=== PATIENT | male | born 1955 | race Caucasian/White ===

== ENCOUNTER 2021-10-26 07:58 | Emergency (ER) | payer MEDICARE, OTHER, SELFPAY ==
[2021-10-26] VITALS (8 sets, daily range): BP systolic 124–143; BP diastolic 68–76; PULSE 51–61; RESP 18; TEMP 36.5; O2SAT 97–99; BMI 24.3
--- NOTE | 2021-10-26 08:21 | ED.GENADULT ---
HPI - General Adult General Chief complaint: Abdominal Pain Stated complaint: Right side abd pain Time Seen by Provider: 10/26/21 08:03 Source: patient Mode of arrival: Ambulatory Limitations: no limitations History of Present Illness HPI narrative: 66-year-old male with history of ulcerative colitis is here for evaluation of right-sided abdominal pain. He states that for the past several days/week he has had some abdominal discomfort however this morning he started to have an increase in the discomfort. He states that he has got a constant dull discomfort that has sharp intermittent pain that comes and goes here every couple minutes. No change in bowel habits. No blood in the stool. No urinary symptoms. He had both a bowel movement and urinated this morning which did not make his abdominal pain worse or better. No nausea vomiting. No fevers. No rashes. No chest pain. No shortness of breath. No joint pain. No lower extremity swelling. He states that he has never had abdominal discomfort with his ulcerative colitis issues it has always been blood in his stool. He is not currently on any medications for this. He did have a colonoscopy within the past couple months any states that overall his also did colitis was improved from earlier. Has not tried anything for symptoms prior to arrival. Related Data Allergies Allergy/AdvReac Type Severity Reaction Status Date / Time INGREDIENT: NDA - NO KNOWN Allergy Unknown Uncoded 09/02/17 12:03 DRUG ALLERGIES Morphine AdvReac Unknown Uncoded 09/02/17 12:03 Review of Systems Constitutional Constitutional: Denies fever(s) Cardiovascular Cardiovascular: Denies chest pain and Denies dyspnea Respiratory Respiratory: Denies dyspnea Gastrointestinal Gastrointestinal: Reports as per HPI Genitourinary Genitourinary: Reports system reviewed and no additional complaints, except as documented Musculoskeletal Musculoskeletal: Reports system reviewed and no additional complaints, except as documented Integumentary/Breasts Skin/Breast: Reports system reviewed and no additional complaints, except as documented Hematologic/Lymphatic On Anticoagulants: No Allergic/Immunologic Allergic/Immunologic: Reports system reviewed and no additional complaints, except as documented Patient History Medical History Ulcerative colitis Social History marital status: lives independently: Yes Smoking Status: Former smoker Exam Initial Vital Signs Initial Vital Signs: Vital Signs Temperature 97.7 F 10/26/21 07:59 Pulse Rate 59 L 10/26/21 07:59 Respiratory Rate 18 10/26/21 07:59 Blood Pressure 143/70 H 10/26/21 07:59 Pulse Oximetry 98 10/26/21 07:59 Const General: cooperative and healthy appearing HENKY Head: normal to inspection and normocephalic Resp Effort & Inspection: normal respiratory effort Auscultation: clear to auscultation bilaterally Cardio Rate: regular rate Rhythm: regular rhythm GI Inspection: normal to inspection and non-distended Palpation: soft and tender (Right mid abdomen.) Other: Negative Bland sign no tenderness over McBurney's point Back/Spine/Pelvis Back: No CVA tenderness Skin General: no rashes or lesions noted Neuro General: patient alert, patient awake, patient oriented x3 and moves all extremities Extrem General: normal to inspection and capillary refill normal Psych Appearance: grossly normal and well kempt Course Orders Ordered: ED Orders 10/26/21 08:15 Complete Blood Count AUTO DIFF Stat Comprehensive Metabolic Panel Stat Lipase Stat 10/26/21 08:25 CT abdomen pelvis w con Stat Vital Signs Vital signs: Vital Signs - 8 hr 10/26/21 07:59 10/26/21 08:28 10/26/21 08:30 Temperature 97.7 F Pulse Rate 59 L 54 L 56 L Respiratory Rate 18 18 Blood Pressure 143/70 H 125/73 Pulse Oximetry 98 97 97 10/26/21 08:54 10/26/21 08:55 10/26/21 09:00 Temperature Pulse Rate 60 61 55 L Respiratory Rate 18 Blood Pressure 124/73 127/68 Pulse Oximetry 97 98 97 10/26/21 09:30 10/26/21 10:00 Temperature Pulse Rate 51 L 55 L Respiratory Rate 18 Blood Pressure 133/75 124/76 Pulse Oximetry 98 99 Medical Decision Making Lab Data Lab results reviewed: Yes I reviewed the patient's lab results. Result diagrams: 10/26/21 08:15 10/26/21 08:15 Labs: Lab Results 10/26/21 10/26/21 Range/Units 08:15 08:15 WBC 4.4 L (4.5-11.0) X10^3/uL RBC 4.80 (4.5-5.9) X10^6/uL Hgb 15.9 (13.5-17.5) g/dL Hct 45.7 (41-53) % MCV 95.2 (80-100) fL MCH 33.2 (26-34) PG MCHC 34.9 (30-36) % RDW 14.2 (11.6-14.8) % Plt Count 280 (150-400) X10^3/uL Neut % (Auto) 61.2 (50-75) % Lymph % (Auto) 26.6 (25-40) % Alexander % (Auto) 7.9 (3-14) % Eos % (Auto) 3.6 (2-4) % Baso % (Auto) 0.7 (0-2) % Neut # (Auto) 2700 (5467-4073) /uL Lymph # (Auto) 1200 (2756-4303) /uL Alexander # (Auto) 400 (0-900) /uL Eos # (Auto) 200 (0-450) /uL Baso # (Auto) 0 (0-100) /uL Sodium 138 (137-145) mmol/L Potassium 4.3 (3.4-5.1) mmol/L Chloride 103 (98-107) mmol/L Carbon Dioxide 30 (22-32) mmol/L BUN 19 (9-20) mg/dL Creatinine 0.85 (0.66-1.25) mg/dL Estimated GFR > 60 (>60) mL/min BUN/Creatinine Ratio 22.4 H (6-22) Glucose 114 H (80-110) mg/dL Calcium 9.1 (8.4-10.2) mg/dL Total Bilirubin 0.6 (0.2-1.3) mg/dL AST 50 (17-59) IU/L ALT 26 (<50) IU/L Alkaline Phosphatase 39 (38-126) U/L Total Protein 7.9 (6.3-8.2) g/dL Albumin 4.3 (3.5-5.0) g/dL Globulin 3.6 (1.7-4.1) g/dL Albumin/Globulin Ratio 1.2 (1.0-2.8) Lipase 63 (23-300) U/L Urine Dip Bedside Urine Glucose Negative Bedside Urine Bilirubin - Negative Bedside Urine Ketone - Negative Urine Specific [place] 1.015 Bedside Urine Occult Blood - Negative Bedside Urine pH 6.0 Bedside Urine Protein - Negative Bedside Urine Urobilinogen - Negative Bedside Urine Nitrite - Negative Bedside Urine Leukocytes - Negative Esterase Point of care testing: Urine Dip Bedside Urine Glucose Negative Bedside Urine Bilirubin - Negative Bedside Urine Ketone - Negative Urine Specific [place] 1.015 Bedside Urine Occult Blood - Negative Bedside Urine pH 6.0 Bedside Urine Protein - Negative Bedside Urine Urobilinogen - Negative Bedside Urine Nitrite - Negative Bedside Urine Leukocytes - Negative Esterase Imaging Data CT scan - abdomen/pelvis: Radiologist's Impression: [address] [address] [address] Scan Report Signed Patient: Edilberto Dave MR#: [id number] : 1955 Acct:[id number] Age/Sex: 66 / M Date of Service: 10/26/21 Loc: ED Accession Number: [id number] ?? Procedure: CT abdomen pelvis w con Ordering Provider: Zac Arora D.O. PROCEDURE:? CT ABDOMEN PELVIS W CON ? INDICATIONS:? Right-sided abdominal pain ? TECHNIQUE:? After the administration of intravenous contrast, axial sections acquired from the lung bases to the pubic symphysis.? Coronal and sagittal reformats were performed.? For radiation dose reduction, the following was used:? automated exposure control, adjustment of mA and/or kV according to patient size.? ? COMPARISON:? Merged With [facility], , CT ABDOMEN/PELVIS WITH CONTRAST, 03/08/2005, 13:22. ? FINDINGS:? Image quality:? Excellent.? ? Lung bases:? Unremarkable. Heart:? No significant findings. ? ABDOMEN: Liver:? Multiple fluid density cystic lesions the largest within the inferior right hepatic lobe measures 2.6 centimeters.? Additional subcentimeter hypoattenuating lesions too small to further characterize but also likely represent simple cysts. Gallbladder:? Unremarkable Biliary ducts:? Unremarkable.? ? Pancreas:? Unremarkable.? ? Spleen:? Unremarkable.? ? Adrenal Glands:? Unremarkable.? ? Kidneys and Ureters:? Unremarkable.? ? ? Stomach and Bowel:? Stomach and small bowel loops are unremarkable.? No obstruction.? There is marked stool burden noted within the colon, most prominently within the right colon.? The appendix is not definitely identified.? No secondary signs of appendicitis. Peritoneum:? No abnormal intraperitoneal fluid.? No free air.? ? Ventral Wall: ? No hernias.? Abdominal Nodes:? No retroperitoneal or mesenteric adenopathy by size criteria.? Vessels:? Aorta and inferior vena cava are normal in size.? ? PELVIS: Pelvic Organs:? Mild prostatomegaly. Bladder:? Mild circumferential wall thickening.? No adjacent inflammation.? Pelvic Nodes: No enlarged lymph nodes.? Miscellaneous: No hernias are seen. ? ? ? Bones:? Grade 1 anterolisthesis of L5 on S1 with bilateral pars defects of L5.? Mild age-appropriate degenerative changes of the spine and hips. ? ? IMPRESSION:? ? No acute intra-abdominal/pelvic abnormality. ? Marked stool burden most prominent within the right colon. ? Mild circumferential wall thickening likely sequela of outlet obstruction given prostatomegaly.? Recommend correlation with urinalysis to exclude cystitis. ? Grade 1 anterolisthesis of L5 on S1 with bilateral pars defects of L5.? ? Dictated by: Yamil Montana D.O. on 10/26/2021 at 8:09 ? ? Approved by: Yamil Montana D.O. on 10/26/2021 at 8:18? MDM Narrative Medical decision making narrative: Patient does have reproducible right-sided abdominal pain. Labs are unremarkable. Urine is unremarkable. CT scan shows no signs of acute surgical pathology but does show significant stool burden and the hepatic flexure of the colon which does correspond to where the patient is having his discomfort. I did discuss this with the patient. There is no skin changes over the area. Is afebrile. Will have him start on a laxative. He was given strict return precautions. He expressed understanding and agreement. Discharge Plan Departure Patient Disposition: Home Clinical Impression: Abdominal pain, Constipation Instructions: DI for Abdominal Pain-Adult, DI for Constipation Activity Restrictions/Additional Instructions: Your workup here in the emergency department is very reassuring. The CT scan did not show any emergent surgical or infectious issue. You did have quite a bit of stool in the right side of the colon which very well could be causing your discomfort. I recommend he start on a laxative like we discussed. Contact your primary doctor for a follow-up. Return to the emergency department for any new or worsening symptoms. Referrals: Cresencio Robertson MD [Primary Care Provider] - Visit Report Forms: Patient Portal/API
[2021-10-26 08:24] LABS: Add Manual Diff / Slide Review NO; Basophils Absolute Auto 0 /uL (0-100); Basophils Percent Auto 0.7 % (0-2); Eosinophils Absolute Auto 200 /uL (0-450); Eosinophils Percent Auto 3.6 % (2-4); Hematocrit 45.7 % (41-53); Hemoglobin 15.9 g/dL (13.5-17.5); Lymphocytes Absolute Auto 1200 /uL (1100-4500); Lymphocytes Percent Auto 26.6 % (25-40); Mean Corpuscular HGB Conc 34.9 % (30-36); Mean Corpuscular Hemoglobin 33.2 PG (26-34); Mean Corpuscular Volume 95.2 fL (80-100); Monocytes Absolute Auto 400 /uL (0-900); Monocytes Percent Auto 7.9 % (3-14); Neutrophils Absolute Auto 2700 /uL (1500-7000); Neutrophils Percent Auto 61.2 % (50-75); Platelet Count 280 X10^3/uL (150-400); Red Cell Distribution Width 14.2 % (11.6-14.8); White Blood Cell Count 4.4 X10^3/uL (4.5-11.0)
--- NOTE | 2021-10-26 08:25 | DI.CT.S_ITS ---
PROCEDURE: CT ABDOMEN PELVIS W CON INDICATIONS: Right-sided abdominal pain TECHNIQUE: After the administration of intravenous contrast, axial sections acquired from the lung bases to the pubic symphysis. Coronal and sagittal reformats were performed. For radiation dose reduction, the following was used: automated exposure control, adjustment of mA and/or kV according to patient size. COMPARISON: [facility], CT ABDOMEN/PELVIS WITH CONTRAST, 03/08/2005, 13:22. FINDINGS: Image quality: Excellent. Lung bases: Unremarkable. Heart: No significant findings. ABDOMEN: Liver: Multiple fluid density cystic lesions the largest within the inferior right hepatic lobe measures 2.6 centimeters. Additional subcentimeter hypoattenuating lesions too small to further characterize but also likely represent simple cysts. Gallbladder: Unremarkable Biliary ducts: Unremarkable. Pancreas: Unremarkable. Spleen: Unremarkable. Adrenal Glands: Unremarkable. Kidneys and Ureters: Unremarkable. Stomach and Bowel: Stomach and small bowel loops are unremarkable. No obstruction. There is marked stool burden noted within the colon, most prominently within the right colon. The appendix is not definitely identified. No secondary signs of appendicitis. Peritoneum: No abnormal intraperitoneal fluid. No free air. Ventral Wall: No hernias. Abdominal Nodes: No retroperitoneal or mesenteric adenopathy by size criteria. Vessels: Aorta and inferior vena cava are normal in size. PELVIS: Pelvic Organs: Mild prostatomegaly. Bladder: Mild circumferential wall thickening. No adjacent inflammation. Pelvic Nodes: No enlarged lymph nodes. Miscellaneous: No hernias are seen. Bones: Grade 1 anterolisthesis of L5 on S1 with bilateral pars defects of L5. Mild age-appropriate degenerative changes of the spine and hips. IMPRESSION: No acute intra-abdominal/pelvic abnormality. Marked stool burden most prominent within the right colon. Mild circumferential wall thickening likely sequela of outlet obstruction given prostatomegaly. Recommend correlation with urinalysis to exclude cystitis. Grade 1 anterolisthesis of L5 on S1 with bilateral pars defects of L5. Dictated by: Yamil Montana D.O. on 10/26/2021 at 8:09 Approved by: Yamil Montana D.O. on 10/26/2021 at 8:18
[2021-10-26 08:35] LABS: Alanine Aminotransferase 26 IU/L (<50); Albumin 4.3 g/dL (3.5-5.0); Albumin Globulin Ratio 1.2 (1.0-2.8); Alkaline Phosphatase 39 U/L (38-126); Aspartate Aminotransferase 50 IU/L (17-59); BUN Creatinine Ratio 22.4 (6-22); Bilirubin Total 0.6 mg/dL (0.2-1.3); Blood Urea Nitrogen 19 mg/dL (9-20); Calcium 9.1 mg/dL (8.4-10.2); Carbon Dioxide 30 mmol/L (22-32); Chloride 103 mmol/L (98-107); Estimated Glomerular Filt Rate > 60 mL/min (>60); Globulin 3.6 g/dL (1.7-4.1); Glucose 114 mg/dL (80-110); HEMOLYSIS < 15 (0-50); Lipase 63 U/L (23-300); Potassium 4.3 mmol/L (3.4-5.1); Sodium 138 mmol/L (137-145); Total Protein 7.9 g/dL (6.3-8.2)
== END 2021-10-26 10:08 | disposition home or self-care (01) ==
PROVIDERS: Emergency Provider Emergency Medicine; PCP Internal Medicine
DX: R10.9 Unspecified abdominal pain (principal); K59.00 Constipation, unspecified
CPT/HCPCS: 36415; 74177; 80053; 81003; 83690; 85025; 99283; Q9967

== ENCOUNTER → 2022-08-05 10:33 | Outpatient (CLI) | payer OTHER, SELFPAY ==
--- NOTE | 2022-08-05 | DI.MRI.S_ITS ---
PROCEDURE: MR SHOULDER RT WO CON INDICATIONS: Pain in right shoulder TECHNIQUE: Noncontrast oblique coronal T2 fast spin echo with fat saturation, oblique sagittal T1 spin echo and T2 fast spin echo with fat saturation, axial T1 spin echo and T2 fast spin echo with fat saturation through the shoulder. COMPARISON: None. FINDINGS: Image quality: Excellent. Rotator cuff: There is partial-thickness tear of the supraspinatus, infraspinatus, and subscapularis tendons and associated moderate tendinosis. No full-thickness tendon tear or tendon retraction.. Sagittal images demonstrate no rotator cuff muscle atrophy. Bones and bursae: No bone marrow contusions or fractures. Mild acromioclavicular and glenohumeral joint degeneration. The acromion demonstrates conventional anatomy, without an os acromiale. Small subcoracoid bursal fluid is present, suggesting mild bursitis. Capsule and soft tissues: Mild degenerative fraying of the superior and inferior labrum. The long head of the biceps tendon demonstrates normal location and morphology. The rotator interval appears normal, without fibrosis. The coracohumeral ligament is normal in thickness. Slightly prominent subcentimeter axillary lymph nodes are noted, likely reactive. IMPRESSION: 1. Moderate tendinosis of the supraspinatus, infraspinatus and subscapularis tendons with partial-thickness tear. No tendon retraction or rotator cuff muscle atrophy. 2. Mild acromioclavicular and glenohumeral joint degeneration. 3. Small subcoracoid bursal fluid suggesting mild bursitis. 4. Mild degenerative labral fraying. Dictated by: Blair Palmer M.D. on 08/05/2022 at 12:33 Approved by: Blair Palmer M.D. on 08/05/2022 at 12:39
== END ==
PROVIDERS: PCP Internal Medicine; Referring Provider Internal Medicine; Visit Provider Internal Medicine
DX: M75.111 Incomplete rotator cuff tear or rupture of right shoulder, not specified as traumatic (principal); M19.011 Primary osteoarthritis, right shoulder; M25.511 Pain in right shoulder
CPT/HCPCS: 73221

== ENCOUNTER 2023-11-27 07:40 | Emergency (ER) | payer MEDICARE, OTHER, SELFPAY ==
[2023-11-27] VITALS (8 sets, daily range): BP systolic 130–155; BP diastolic 73–82; PULSE 60–82; RESP 19; TEMP 36.8; O2SAT 96–98; BMI 24.3
--- NOTE | 2023-11-27 07:56 | DI.RAD.S_ITS ---
PROCEDURE: XR KNEE LT 3V INDICATIONS: left knee pain, unable to bend leg TECHNIQUE: 3 views of the knee were acquired. COMPARISON: None. FINDINGS: Bones: No fractures or dislocations. No suspicious bony lesions. Soft tissues: Moderate joint effusion. No suspicious soft tissue calcifications. IMPRESSION: No acute bony abnormality. Moderate joint effusion. Internal derangement not excluded. Dictated by: Imer Salvador M.D. on 11/27/2023 at 8:22 Approved by: Imer Salvador M.D. on 11/27/2023 at 8:26
--- NOTE | 2023-11-27 08:35 | ED_ITS ---
HPI - Extremity Injury (Lower) General Chief Complaint: Extremity Injury, Lower Stated Complaint: L knee injury Time Seen by Provider: 11/27/23 08:34 Source: patient, RN notes reviewed and old records reviewed Mode of arrival: Family Vehicle Limitations: no limitations History of Present Illness HPI Narrative: This is a 68-year-old male who was playing volleyball yesterday, he states he felt pain his knee then went down to the ground. He states he did not feel snap or a pop and he has not sure exactly what movement he did to cause discomfort. He states he does not normally play volleyball. Patient states pain sort of throughout the knee but does localize a little bit laterally on the inferior side. Patient states no new appreciable swelling, no redness or skin changes. He states pain started before he fell. He states pain does radiate down words. Denies any new numbness tingling or weakness. He is able to fully extend his leg but feels most comfortable when holding it fully extended. If he flexes his knee it is uncomfortable. Patient denies any other injuries. He states he does not have increased pain with weight-bearing if he keeps his knee straight. Patient did have a meniscus repair on the right knee in the past. 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 Related Data Home Medications Medication Instructions Recorded Confirmed No Known Home Medications 09/18/22 09/18/22 Allergies Allergy/AdvReac Type Severity Reaction Status Date / Time Morphine AdvReac Unknown Uncoded 09/18/22 09:04 Review of Systems Review of Systems ROS Unobtainable: All systems reviewed & are unremarkable except as noted in HPI and below Patient History Medical History Hearing loss Headache (~1989) Shoulder pain (~2021) Colitis Allergic rhinitis Migraine with aura (~1999) Chronic low back pain Right rotator cuff tendonitis Mixed hyperlipidemia Ulcerative colitis Surgical History Anesthesia S/P arthroscopic surgery of right knee (~2014) History of hand surgery (~1989) Family History Father Diabetes mellitus Social History marital status: details: (Kari) lives independently: Yes Smoking Status: Former smoker Smoking Status: Former smoker alcohol intake frequency: a few times a week Substance Use Type: does not use Exam Narrative Exam Narrative: GENERAL: Alert and oriented x three, well-appearing male in mild distress HEENT: Head normocephalic, atraumatic, EOMI, pupils reactive, face symmetric, moist mucous membranes NECK: Supple, full range of motion CARDIOVASCULAR: Regular rate and rhythm without murmurs, rubs or gallops. RESPIRATORY: Breath sounds equal bilaterally, no wheezes rales or rhonchi. ABDOMEN: Soft, nontender. Normoactive bowel sounds all 4 quadrants. No guarding or rebound, rigidity, no mass EXTREMITIES: Patient is able to flex his knee but is more comfortable held in extension. He does have some thickening/callus over the knee itself but states this is baseline secondary to his occupation, no discrete bony tenderness throughout the leg. No warmth, erythema or swelling. Normal valgus varus, negative anterior-posterior drawer. Patella is in place. Patient's patellar ligament is in place, no clubbing or edema. Neurovascularly intact. Patient is able to hold his leg fully extended without issue. NEUROLOGICAL: Cranial nerves II through XII grossly intact. Moving all extremities SKIN: Warm, dry, no petechiae, no rashes or lesions. Initial Vital Signs Initial Vital Signs: Vital Signs Pulse Oximetry 97 11/27/23 07:51 Course Orders Ordered: ED Orders 11/27/23 07:56 XR knee LT 3V Stat Vital Signs Vital signs: Vital Signs - 8 hr 11/27/23 07:51 11/27/23 07:52 11/27/23 07:52 Temperature Pulse Rate 67 Pulse Rate [Left Dorsalis Pedis] Respiratory Rate Blood Pressure 155/82 H Pulse Oximetry 97 96 Oxygen Delivery Method 11/27/23 07:54 11/27/23 08:00 11/27/23 08:00 Temperature 98.2 F Pulse Rate 81 60 Pulse Rate [Left Dorsalis Pedis] Respiratory Rate 19 Blood Pressure 155/82 H 139/73 Pulse Oximetry 97 96 Oxygen Delivery Method Room Air 11/27/23 08:08 Temperature Pulse Rate Pulse Rate [Left Dorsalis Pedis] 82 Respiratory Rate Blood Pressure Pulse Oximetry Oxygen Delivery Method MDM - Extremity Injury (Lower) Imaging Data Extremity x-ray #1: Radiologist's Impression: [address] [address] XRay Report Signed Patient: Edilberto Dave MR#: [id number] : 1955 Acct:[id number] Age/Sex: 68 / M Date of Service: 11/27/23 Loc: ED Accession Number: [id number] Procedure: XR knee LT 3V Ordering Provider: Kassy Merchant D.O. PROCEDURE: XR KNEE LT 3V INDICATIONS: left knee pain, unable to bend leg TECHNIQUE: 3 views of the knee were acquired. COMPARISON: None. FINDINGS: Bones: No fractures or dislocations. No suspicious bony lesions. Soft tissues: Moderate joint effusion. No suspicious soft tissue calcifications. IMPRESSION: No acute bony abnormality. Moderate joint effusion. Internal derangement not excluded. Dictated by: Imer Salvador M.D. on 11/27/2023 at 8:22 Approved by: Imer Salvador M.D. on 11/27/2023 at 8:26 [facility] Narrative Medical decision making narrative: Knee x-ray shows no fractures or dislocations, moderate joint effusion, no suspicious soft tissue calcifications or suspicious bony lesions. 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 Suspect patient likely has internal derangement, we will use knee immobilizer patient defers crutches states he is able to ambulate without pain. We will give referral to follow up with either primary care or orthopedic surgery if symptoms are persisting beyond week to 10 days. Discussed return precautions. All questions answered. Discharge Plan Departure Patient Disposition: Home Clinical Impression: Left knee sprain Instructions: DI for Knee Sprain Activity Restrictions/Additional Instructions: You may have injured one of the components of the inside of your knee, follow up with primary care orthopedic surgery in the next 7-10 days for recheck if your symptoms are not improving. Weightbear as tolerated. If your symptoms resolve you do not have to continue to use the knee immobilizer. You can take Tylenol and/or ibuprofen as needed for discomfort. Splint Care: Keep splint clean and dry. Elevated affected body part to decrease swelling. OK to use ice pack on the affected body part. Use for 15-20 minutes each time, for 5-6x per day. If you develop worsening pain, numbness, tingling, discoloration of the affected body part, adjust the knee immobilizer, and either see your doctor for an urgent re-assessment, or return to the Emergency Department. Return to the Emergency Department for any new or worsening symptoms. Prescriptions: No Action No Known Home Medications Referrals: Koko Cortes MD [Physician] - Miscellaneous,MD Serge [Primary Care Provider] - Stand Alone Forms: Patient Portal/API
== END 2023-11-27 09:09 | disposition home or self-care (01) ==
PROVIDERS: Emergency Provider Emergency Medicine
DX: S83.92XA Sprain of unspecified site of left knee, initial encounter (principal); X58.XXXA Exposure to other specified factors, initial encounter; Y93.68 Activity, volleyball (beach) (court)
CPT/HCPCS: 73562; 99283

== ENCOUNTER → 2023-12-12 15:53 | Outpatient (CLI) | payer MEDICARE, OTHER, SELFPAY ==
--- NOTE | 2023-12-12 15:54 | DI.MRI.S_ITS ---
PROCEDURE: MR KNEE LT WO CON INDICATIONS: INJURY TO LEFT KNEE TECHNIQUE: Noncontrast sagittal PD fast spin echo and T2 fast spin echo with fat saturation, sagittal 3-D FLASH with fat saturation; coronal T1 spin echo and PD fast spin echo with fat saturation, and axial PD fast spin echo with fat saturation through the knee. COMPARISON: [facility], MR, KNEE WITHOUT CONTRAST, 11/16/2012, 7:40. FINDINGS: Image quality: Excellent. Menisci: Peripheral displacement of medial meniscus bowing medial collateral ligament is seen. Horizontal oblique tear involving body and posterior horn of medial meniscus extending to superior articulating surface is seen. Subtle oblique tear involving anterior horn of lateral meniscus extending to superior articulating surface is also seen. The meniscal root ligaments appear intact. Cruciate ligaments: The anterior cruciate ligament appears thickened with intrasubstance T2 hyperintense signal. The posterior cruciate ligament is intact. Medial structures: The medial collateral ligament appears thickened with intrasubstance T2 hyperintense signal at its femoral insertion. Visualized portions of the pes anserinus tendons appear normal. No abnormal bursal fluid. Lateral structures: The lateral collateral ligament is thickened. The long and short heads of the biceps femoris tendon appear intact. The popliteus tendon appears thickened. Iliotibial band appears normal. Anterior structures: The quadriceps and patellar tendons appear intact. Soft tissue swelling and edema along anterior aspect of patella and patella tendon is seen. No definite prepatellar bursal fluid. Patellar alignment is normal. No femoral trochlear dysplasia or ventral trochlear prominence. Edema is noted in the infrapatellar fat pad. Bones and cartilage: No bone marrow contusions or fractures. 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 Joint space: There is moderate knee joint fluid. No Heller's cyst. Normal appearing synovial plicae are incidentally noted. IMPRESSION: 1. Peripheral displacement of medial meniscus bowing medial collateral ligament with horizontal oblique tear involving body and posterior horn of medial meniscus extending to superior articulating surface. 2. Subtle oblique tear involving anterior horn of lateral meniscus extending to superior articulating surface. 3. Degenerative changes are noted in ACL. No ACL rupture. The PCL is intact. 4. Low-grade partial-thickness tear involving proximal MCL. Low-grade LCL sprain. Popliteus tendinosis. 5. Soft tissue swelling, edema and fluid along anterior aspect of patella and patella tendon. No definite prepatellar bursal fluid. 6. 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 Moderate joint effusion, no loose bodies. No fracture or dislocation. Dictated by: Lev Barillas M.D. on 12/14/2023 at 14:58 Approved by: Lev Barillas M.D. on 12/14/2023 at 15:09
== END ==
PROVIDERS: Referring Provider Internal Medicine; Visit Provider Internal Medicine
DX: S83.242A Other tear of medial meniscus, current injury, left knee, initial encounter (principal); S83.282A Other tear of lateral meniscus, current injury, left knee, initial encounter; S83.412A Sprain of medial collateral ligament of left knee, initial encounter; S83.422A Sprain of lateral collateral ligament of left knee, initial encounter; M17.12 Unilateral primary osteoarthritis, left knee; M94.262 Chondromalacia, left knee; M25.462 Effusion, left knee; M79.89 Other specified soft tissue disorders; X58.XXXA Exposure to other specified factors, initial encounter
CPT/HCPCS: 73721